=== PATIENT | female | born 1940 | race Hispanic/Latino ===

== ENCOUNTER 2023-10-02 02:50 | Inpatient (IN) | payer MEDICARE, MEDICAID ==
[2023-10-02] MEDS ORDERED: Ondansetron PF 4 MG/2 ML Vial IVP PRN (03:42)
[2023-10-02 05:00] LABS: Troponin I 0.014 ng/mL (< 0.028)
[2023-10-02 06:46] LABS: Hematocrit 37.4 % (36.0-47.0); Hemoglobin 12.6 g/dL (12.0-16.0)
[2023-10-02 07:31] LABS: Troponin I 0.014 ng/mL (< 0.028)
[2023-10-02] MEDS: Sodium Chloride 0.9% 1,000 ML IV SCH (08:27)
[2023-10-02 08:31] VITALS: BMI 25.2
[2023-10-02] MEDS: Pantoprazole 80 MG, Admixture Fee 1 EACH in Sodium Chloride 0.9% 100 ML IVP SCH (10:00)
[2023-10-02 12:43] LABS: Hematocrit 32.2 % (36.0-47.0)
[2023-10-02] MEDS: dilTIAZem CD 120 MG CAP PO SCH (14:28)
[2023-10-02 14:53] LABS: Hemoglobin 9.6 g/dL (12.0-16.0)
[2023-10-02 17:57] LABS: Hematocrit 25.5 % (36.0-47.0)
[2023-10-02 23:12] LABS: Hemoglobin 7.3 g/dL (12.0-16.0)
[2023-10-03 00:17] LABS: Hematocrit 20.3 % (36.0-47.0)
[2023-10-03 04:38] LABS: Anion Gap 12 mmol/L (10-20); BUN (Urea Nitrogen) 66 mg/dL (9.8-20.1); Calc. Creatinine Clearance 48 mL/min (70-130); Calcium 7.5 mg/dL (7.8-10.44); Carbon Dioxide 18 mmol/L (23-31); Cardiac Risk 4.1 (Less than 4.5); Chloride 113 mmol/L (98-107); Cholesterol 77 mg/dl (< 200 Desired); Estimated GFR 66; Glucose 120 mg/dL (83-110); HDL Cholesterol 19 mg/dL (>60 Neg Risk); LDL Cholesterol, Calculated 48 mg/dL; Sodium 138 mmol/L (136-145); Triglycerides 52 mg/dL (Less than 150)
[2023-10-03] MEDS: Metoprolol Tartrate 5 MG (5 mL) VIAL IVP SCH ×2 (04:46→19:43)
[2023-10-03] MEDS: Levothyroxine Sodium 25 MCG TAB PO SCH (05:01)
[2023-10-03 06:03] LABS: Campy jejuni + coli by PCR Negative (Negative); STEC Shiga Toxin 1+2 Negative (Negative); Salmonella spp. by PCR Negative (Negative); Shigella spp + EIEC by PCR Negative (Negative)
[2023-10-03 06:33] LABS: #Monocytes 0.6 thou/uL (0.11-0.59); %Basophils 0.1 % (0.0-1.0); %Lymphocytes 37.6 % (21.0-51.0); %Monocytes 8.5 % (0.0-10.0); %Neutrophils 53.4 % (42.0-75.0); Hematocrit 21.9 % (36.0-47.0); Hemoglobin 7.4 g/dL (12.0-16.0); Mean Corpuscular HGB CONC 33.8 g/dL (32.0-36.0); Mean Corpuscular Hemoglobin 34.7 pg (27.0-31.0); Mean Corpuscular Volume 102.8 fl (78.0-98.0); Mean Platelet Volume 13.1 fL (7.4-10.4); RBC Distribution Width 15.3 % (11.5-14.5); Red Blood Cell (RBC) Count 2.13 mill/uL (4.20-5.40); White Blood Cell (WBC) Count 7.6 10x3/uL (4.8-10.8)
[2023-10-03 06:37] LABS: Platelet Count 87 10x3/uL (130-400)
[2023-10-03 06:52] LABS: INR-International Normal Ratio 1.4; Prothrombin Time 17.4 sec (12.0-14.7)
[2023-10-03 06:53] LABS: PTT 33.5 sec (22.9-36.1)
[2023-10-03 06:54] LABS: Magnesium 1.7 mg/dL (1.6-2.6)
[2023-10-03] MEDS: dilTIAZem CD 120 MG CAP PO SCH (07:15)
[2023-10-03] MEDS ORDERED: dilTIAZem CD 120 MG CAP PO SCH (09:00)
[2023-10-03] MEDS: Calcium Chloride 13.6 MEQ in Sodium Chloride 0.9% 100 ML IVPB SCH (09:16)
[2023-10-03] MEDS: Sodium Chloride 0.45% 1,000 ML IV SCH (09:25)
[2023-10-03 09:53] LABS: Hematocrit 26.5 % (36.0-47.0); Hemoglobin 9.1 g/dL (12.0-16.0)
[2023-10-03] MEDS: Pantoprazole 40 MG VIAL IVP SCH (10:14)
[2023-10-03] MEDS ORDERED: PROPOFOL 20 ML ONE (14:16)
[2023-10-03] MEDS ORDERED: Ketamine In 0.9 % NaCl 50 MG/5 ML SYRINGE ONE (14:16)
[2023-10-03] MEDS ORDERED: SUCCINYLCHOLINE/SOD CL,ISO/PF 200 MG/10 ML SYRINGE FS ONE (14:19)
[2023-10-03] MEDS ORDERED: fentaNYL 50 mcg/mL 1 mL Vial ONE (14:56)
[2023-10-03] MEDS ORDERED: Lidocaine 1% PF 5 ML VIAL ONE (14:58)
[2023-10-03] MEDS ORDERED: PHENYLEPHRINE-NS 100 MCG/ML 10 ML SYRINGE ONE (15:07)
[2023-10-03 18:40] LABS: Hematocrit 31.3 % (36.0-47.0); Hemoglobin 11.1 g/dL (12.0-16.0)
[2023-10-03] MEDS: Pantoprazole 80 MG in Sodium Chloride 0.9% 100 ML IVPB SCH (19:10)
[2023-10-03] MEDS: Metoprolol Tartrate 5 MG (5 mL) VIAL ONE (19:43)
[2023-10-03 20:04] LABS: #Eosinphils Less than 0.0 thou/uL (0.0-0.7); #Monocytes 0.7 thou/uL (0.11-0.59); #Neutrophils 5.3 thou/uL (1.40-6.50); %Basophils 0.5 % (0.0-1.0); %Eosinophils 0.1 % (0.0-10.0); %Lymphocytes 31.3 % (21.0-51.0); %Monocytes 7.5 % (0.0-10.0); %Neutrophils 59.6 % (42.0-75.0); Hemoglobin 10.9 g/dL (12.0-16.0); Mean Corpuscular HGB CONC 35.2 g/dL (32.0-36.0); Mean Corpuscular Hemoglobin 32.4 pg (27.0-31.0); Mean Platelet Volume 13.7 fL (7.4-10.4); Platelet Count 49 10x3/uL (130-400); RBC Distribution Width 16.5 % (11.5-14.5); Red Blood Cell (RBC) Count 3.36 mill/uL (4.20-5.40); White Blood Cell (WBC) Count 8.9 10x3/uL (4.8-10.8)
[2023-10-03 20:13] LABS: Anion Gap 12 mmol/L (10-20); BUN (Urea Nitrogen) 49 mg/dL (9.8-20.1); Calc. Creatinine Clearance 54 mL/min (70-130); Calcium 8.2 mg/dL (7.8-10.44); Carbon Dioxide 20 mmol/L (23-31); Chloride 112 mmol/L (98-107); Estimated GFR 80; Glucose 102 mg/dL (83-110); Potassium 4.6 mmol/L (3.5-5.1); Sodium 139 mmol/L (136-145)
[2023-10-03 20:38] LABS: Platelet Adequacy Comment Platelets Decreased; RBC Morphology Within Normal Limits
[2023-10-03 20:59] LABS: Mean Corpuscular Volume 92.3 fl (78.0-98.0)
[2023-10-04] MEDS: Pantoprazole 80 MG, Admixture Fee 1 EACH in Sodium Chloride 0.9% 100 ML IVPB SCH (10:03)
[2023-10-04 11:05] LABS: #Basophils 0.04 10x3/uL (0.0-0.2); %Basophils 0.6 % (0.0-1.0); %Eosinophils 1.4 % (0.0-10.0); %Lymphocytes 21.5 % (21.0-51.0); %Monocytes 8.4 % (0.0-10.0); %Neutrophils 67.2 % (42.0-75.0); Hematocrit 28.4 % (36.0-47.0); Hemoglobin 10.1 g/dL (12.0-16.0); Mean Corpuscular HGB CONC 35.6 g/dL (32.0-36.0); Mean Corpuscular Hemoglobin 33.2 pg (27.0-31.0); Mean Corpuscular Volume 93.4 fl (78.0-98.0); Mean Platelet Volume 13.3 fL (7.4-10.4); Platelet Count 47 10x3/uL (130-400); RBC Distribution Width 16.5 % (11.5-14.5); Red Blood Cell (RBC) Count 3.04 mill/uL (4.20-5.40)
[2023-10-04 11:33] LABS: RBC Morphology Within Normal Limits
[2023-10-04] MEDS: Pantoprazole 40 MG VIAL IVP SCH (19:54)
[2023-10-05] MEDS ORDERED: Acetaminophen 325 MG TAB PO PRN (08:08)
[2023-10-05] MEDS: Metamucil PACK PO SCH (08:28)
[2023-10-05 12:03] VITALS: TEMP 98.6
[2023-10-05 12:06] VITALS: BP 137/71
== END 2023-10-05 15:19 | disposition home or self-care (01) | DRG 369 ==
LOC: ERS 02:50 → ERHOLD 05:29 → 2NO 15:41 → CCU 10-03 06:36 → SURG A 10-04 13:40
PROVIDERS: ADMIT Hospitalist; ATTEND Internal Medicine
PROC: 0W3P8ZZ Control Bleeding in Gastrointestinal Tract, Via Natural or Artificial Opening Endoscopic (ICD-10-PCS; principal; 2023-10-03)
PROC: 30233N1 Transfusion of Nonautologous Red Blood Cells into Peripheral Vein, Percutaneous Approach (ICD-10-PCS; 2023-10-03)
PROC: 30233K1 Transfusion of Nonautologous Frozen Plasma into Peripheral Vein, Percutaneous Approach (ICD-10-PCS; 2023-10-03)
DX: K22.6 Gastro-esophageal laceration-hemorrhage syndrome (principal); D62 Acute posthemorrhagic anemia; K56.609 Unspecified intestinal obstruction, unspecified as to partial versus complete obstruction; K92.1 Melena; I48.91 Unspecified atrial fibrillation; R15.9 Full incontinence of feces; R32 Unspecified urinary incontinence; I10 Essential (primary) hypertension; Z90.49 Acquired absence of other specified parts of digestive tract; Z85.038 Personal history of other malignant neoplasm of large intestine; Z79.01 Long term (current) use of anticoagulants
CPT/HCPCS: 36415; 36430; 71046; 74019; 80048; 80061; 83735; 84443; 84484; 85014; 85018; 85025; 85610; 85730; 86850; 86900; 86901; 87505; 93005; 93010; 93306; 94760; C9113; J2704; J3010; J3490; J7050; P9016; P9048

== ENCOUNTER 2024-05-07 08:08 | Outpatient (CLI) | payer MEDICARE, MEDICAID | END 2024-05-07 08:09 | disposition home or self-care (01) | LOC: ULT 08:08 | PROVIDERS: ATTEND Physician Assistant Medical | DX: K76.0 Fatty (change of) liver, not elsewhere classified (principal); R19.7 Diarrhea, unspecified; I48.91 Unspecified atrial fibrillation; K76.89 Other specified diseases of liver | CPT/HCPCS: 76705 ==